=== PATIENT | female | born 1990 | race American Indian/Alaskan Native ===

== ENCOUNTER 2016-07-28 09:49 | Emergency (ER) | payer SELFPAY ==
[2016-07-28 10:02] VITALS: BP 118/59
--- NOTE | 2016-07-28 10:19 | Emergency Department Report ---
ED Lower Extremity HPI - General Chief Complaint: Extremity Injury, Lower Stated Complaint: POSS BROKEN R PINKY TOE Time Seen by Provider: 07/28/16 10:13 Source: patient Mode of arrival: Ambulatory Limitations: No Limitations - Related Data Previous Rx's Medication Instructions Recorded Last Taken Type Codeine Sulfate 15 mg PO Q4H PRN #15 tablet 07/28/16 Unknown Rx Allergies Allergy/AdvReac Type Severity Reaction Status Date / Time No Known Allergies Allergy Unverified 07/28/16 09:58 ED Review of Systems ROS: Stated complaint: POSS BROKEN R PINKY TOE Other details as noted in HPI Patient states she stubbed her right fifth toe on coffee table approximately one week ago. Denies any other injuries. Constitutional: denies: chills, fever Eyes: denies: eye pain, eye discharge, vision change ENT: denies: ear pain, throat pain Respiratory: no symptoms reported Cardiovascular: denies: chest pain, palpitations Musculoskeletal: other (right fifth toe pain) ED Past Medical Hx - Past Medical History Hx Asthma: Yes - Surgical History Past Surgical History?: No - Social History Smoking Status: Never Smoker Substance Use Type: Alcohol - Medications Home Medications: Home Medications Medication Instructions Recorded Confirmed Last Taken Type Codeine Sulfate 15 mg PO Q4H PRN #15 tablet 07/28/16 Unknown Rx ED Physical Exam - General Limitations: No Limitations General appearance: alert, in no apparent distress - Head Head exam: Present: atraumatic, normocephalic - Eye Eye exam: Present: normal appearance - Respiratory Respiratory exam: Absent: respiratory distress - Cardiovascular Cardiovascular Exam: Present: regular rate - Expanded Lower Extremity Exam Right Foot/Toe exam: Present: tenderness, swelling, ecchymosis. Absent: deformity, crepidus, tenderness at base of 5th metatarsal, nail avulsion, subungual hematoma ED Course Vital Signs 07/28/16 09:59 Temperature 97.4 F L Pulse Rate 64 Respiratory 16 Rate Blood Pressure 118/59 O2 Sat by Pulse 100 Oximetry ED Lower Extremity MDM - Radiology Data Radiology results: report reviewed Right fifth toe fracture nondisplaced Critical care attestation.: If time is entered above; I have spent that time in minutes in the direct care of this critically ill patient, excluding procedure time. ED Disposition Clinical Impression: Fracture of toe Disposition: DISCHARGED TO HOME OR SELFCARE Is pt being admited?: No Does the pt Need Aspirin: No Condition: Stable Instructions: Toe Fracture (ED) Prescriptions: Codeine Sulfate 15 mg PO Q4H PRN #15 tablet PRN Reason: Pain Referrals: GUILLAUME DIAZ DR [Other] - 3-5 Days WILBUR GREEN MD [Staff Physician] - 3-5 Days
--- NOTE | 2016-07-28 12:38 | XRay Report ---
RIGHT FOOT RADIOGRAPHS INDICATION: Trauma. COMPARISON: None similar at this institution. FINDINGS: AP, lateral and oblique views of the right foot demonstrate intact bones and joints. Rodriguez's toe incidentally noted. Questionable hindfoot soft tissue swelling, more so medially. CONCLUSION: Questionable right foot soft tissue swelling without acute bony abnormality. Please correlate. Thank you for the opportunity to participate in this patient's care.
== END 2016-07-28 12:00 | disposition home or self-care (01) ==
LOC: ED 09:49
DX: S92.501A Displaced unspecified fracture of right lesser toe(s), initial encounter for closed fracture (principal); J45.909 Unspecified asthma, uncomplicated; X58.XXXA Exposure to other specified factors, initial encounter; Y93.89 Activity, other specified; Y99.9 Unspecified external cause status; Y92.89 Other specified places as the place of occurrence of the external cause

== ENCOUNTER 2017-08-09 07:29 | Emergency (ER) | payer SELFPAY | END 2017-08-09 08:30 | disposition left against medical advice (07) | LOC: ED 07:29 | DX: R50.9 Fever, unspecified (principal); Z53.21 Procedure and treatment not carried out due to patient leaving prior to being seen by health care provider ==

== ENCOUNTER 2019-05-16 01:54 | Emergency (ER) | payer MEDICAID | END 2019-05-16 01:56 | disposition left against medical advice (07) | LOC: ED 01:54 | DX: J45.909 Unspecified asthma, uncomplicated (principal); Z53.21 Procedure and treatment not carried out due to patient leaving prior to being seen by health care provider ==